=== PATIENT | male | born 1995 | race African-American/Black ===

== ENCOUNTER → 2018-06-07 | Outpatient (CLI) | payer BC ==
[~2018-06-07] MED LIST: 0.9 % SODIUM CHLORIDE 10 ML DISP.SYRIN. ID ONE; GADOBUTROL 10 MMOL/10 ML VIAL INT ART ONE; IOHEXOL 300 MG/ML 50 ML VIAL. INT ART ONE; LIDOCAINE 1% Multi-Dose 20 ML VIAL. ID ONE
--- NOTE | 2018-06-07 15:17 | KCIC ---
MR arthrogram of the right wrist Indication: Right wrist pain. Injury March 2018. Technique: Intra-articular contrast injected by different radiologist, who will dictate that procedure separately. The standard sequences were obtained. FINDINGS: Artifact: No significant image degradation Triangular fibrocartilage: Intact Distal radioulnar alignment: Intact Extensor carpi ulnaris tendon: Minimal internal signal. No tear, fluid or displacement. Other extensor compartments: Intact Flexor tendons: Intact Median nerve: Unremarkable Scapholunate ligament: No evidence of tear Lunotriquetral ligament: No evidence of a tear. Carpal bone alignment: Within normal limits. Joints: No advanced DJD. Bones: No lesion or acute fracture Soft tissues: Unremarkable IMPRESSION: 1. Minimal extensor carpi ulnaris tendinosis 2. Otherwise no evidence of internal derangement. Electronically signed by: Mayur Frey MD (06/07/2018 3:13 PM) [id number]
--- NOTE | 2018-06-07 15:37 | KCIC ---
PROCEDURE Right?wrist injection using fluoroscopic guidance, prior to MR. HISTORY: Pain TECHNIQUE The procedure was explained to the patient as were potential risks, including among others infection, bleeding or allergic reaction. All questions were answered. Informed written consent was obtained. The wrist was prepped and draped in the usual sterile manner. Following administration of local anesthetic with 1% lidocaine , a 25 gauge needle was advanced into the radiocarpal space. Following negative aspiration, 2 cc of a solution of 5cc Omnipaque-300 contrast, 5 cc 1% lidocaine, 10 cc saline, and 0.1 cc gadolinium was injected without difficulty during dynamic digital subtraction imaging. The needle was removed. Additional post exercise images were obtained. There was good hemostasis at the injection site. The patient left in stable condition without immediate complication. In addition to the DSA series, 3 spot images were obtained. FLUOROSCOPY TIME: 80 seconds Electronically signed by: Mayur Frey MD (06/07/2018 3:33 PM) [id number]
== END | disposition home or self-care (01) ==
LOC: KCIC 12:32
DX: M65.841 Other synovitis and tenosynovitis, right hand (principal)
CPT/HCPCS: 73115; 73222; A9585; Q9967